=== PATIENT | female | born 2000 | race Hispanic/Latino ===

== ENCOUNTER 2021-08-28 17:49 | Emergency (ER) | payer OTHER ==
[~2021-08-28] VITALS: Ht 162.6 cm; Wt 103.0 kg
[2021-08-28] MEDS ORDERED: FAMOTIDINE 20 MG/2 ML VIAL IV STA (19:46)
[2021-08-28] MEDS ORDERED: ONDANSETRON HCL INJ 2MG/ML 2ML 2 MG/ML VIAL IV STA (19:46)
[2021-08-28] MEDS ORDERED: SODIUM CHLORIDE 0.9% 50ML 50 ML ONE (20:44)
[2021-08-28] MEDS ORDERED: IOPAMIDOL 370 MG/ML 200 ML INFUS..BTL INJ ONE (20:44)
[2021-08-28] MEDS: SODIUM CHLORIDE 0.9% 1000ML 1,000 ML IV SCH ×2 (21:06→21:19)
[2021-08-28] MEDS ORDERED: ONDANSETRON HCL INJ 2MG/ML 2ML 2 MG/ML VIAL ONE (21:08)
[2021-08-28] MEDS ORDERED: SODIUM CHLORIDE 0.9% 1000ML 1,000 ML ONE (21:09)
[2021-08-28] MEDS ORDERED: FAMOTIDINE 20 MG/2 ML VIAL IV ONE (21:10)
[2021-08-28] MEDS ORDERED: FAMOTIDINE40 MG PO (22:08)
[2021-08-28] MEDS ORDERED: PANTOPRAZOLE SO40 MG PO (22:10)
[2021-08-28] MEDS ORDERED: ONDANSETRON ODT4 MG PO (22:11)
[2021-08-28 22:15] VITALS: BP 106/67
== END 2021-08-28 22:22 | disposition home or self-care (01) ==
LOC: FSED 19:05
DX: K29.70 Gastritis, unspecified, without bleeding (principal); K21.9 Gastro-esophageal reflux disease without esophagitis; G80.8 Other cerebral palsy; Q04.4 Septo-optic dysplasia of brain; G40.909 Epilepsy, unspecified, not intractable, without status epilepticus; E66.01 Morbid (severe) obesity due to excess calories; Z68.39 Body mass index [BMI] 39.0-39.9, adult
CPT/HCPCS: 70450; 74177; 80048; 80076; 81003; 81025; 85025; 96374; 96375; 96376; 99284; C9113; J2405; J7030; Q9967

== ENCOUNTER 2024-06-22 12:49 | Emergency (ER) | payer OTHER ==
[~2024-06-22] VITALS: Ht 162.6 cm; Wt 113.4 kg
[~2024-06-22 12:49] MED LIST: CEFDINIR300 MG PO; CORICIDIN HBP1 EACH PO; FAMOTIDINE40 MG PO; IBUPROFEN800 MG PO; LACOSAMIDE100 MG; LAMOTRIGINE100 MG PO; LEVETIRACETAM1000 MG; NAPROSYN500 MG PO; OMEPRAZOLE20 M1 PO; ONDANSETRON ODT4 MG PO; PANTOPRAZOLE SO40 MG PO; PROTONIX20 MG PO; PROVENTIL HFA6.7 GM INH
[2024-06-22] MEDS ORDERED: OXCARBAZEPINE300 MG PO (13:27)
[2024-06-22] MEDS ORDERED: ONDANSETRON ODT4 MG PO (13:27)
[2024-06-22] MEDS: FAMOTIDINE 20 MG/2 ML VIAL IV STA (14:19)
[2024-06-22] MEDS: ONDANSETRON HCL INJ 2MG/ML 2ML 2 MG/ML VIAL IV STA (14:19)
[2024-06-22] MEDS: CEFTRIAXONE 1 GM VIAL IM ONE (15:06)
[2024-06-22 15:10] VITALS: PULSE 73; RESP 14; TEMP 98.7; O2SAT 97
== END 2024-06-22 15:28 | disposition home or self-care (01) ==
LOC: FSED 12:52
DX: R51.9 Headache, unspecified (principal); N39.0 Urinary tract infection, site not specified; G40.909 Epilepsy, unspecified, not intractable, without status epilepticus; Q04.6 Congenital cerebral cysts; G80.9 Cerebral palsy, unspecified
CPT/HCPCS: 70450; 80053; 81003; 81025; 85025; 96374; 96375; 99284; J0696; J2405

== ENCOUNTER 2025-06-19 12:59 | Emergency (ER) | payer MEDICAID, OTHER ==
[~2025-06-19] VITALS: Ht 162.6 cm; Wt 111.2 kg
[~2025-06-19 12:59] MED LIST changes: +OXCARBAZEPINE300 MG PO
[2025-06-19] MEDS: ONDANSETRON HCL INJ 2MG/ML 2ML 2 MG/ML VIAL IV STA (14:01)
[2025-06-19] MEDS: SODIUM CHLORIDE 0.9% 1000ML 1,000 ML IV ONE (14:01)
[2025-06-19] MEDS: FAMOTIDINE 20 MG/2 ML VIAL IV STA (14:02)
[2025-06-19 15:45] VITALS: PULSE 77; RESP 18; TEMP 98; O2SAT 98
== END 2025-06-19 15:45 | disposition home or self-care (01) ==
LOC: FSED 13:29
DX: R11.2 Nausea with vomiting, unspecified (principal); R10.30 Lower abdominal pain, unspecified; D64.9 Anemia, unspecified; Z77.22 Contact with and (suspected) exposure to environmental tobacco smoke (acute) (chronic)
CPT/HCPCS: 74176; 74177; 80053; 81003; 81025; 85025; 96374; 96375; 99284; J1308; J2405; J7030

== ENCOUNTER 2025-07-21 23:37 | Emergency (ER) | payer MEDICAID ==
[~2025-07-21] VITALS: Ht 162.6 cm; Wt 111.6 kg
[2025-07-22] MEDS ORDERED: LEVETIRACETAM 500 MG/5 ML VIAL IV ONE (00:30)
[2025-07-22] MEDS ORDERED: SODIUM CHLORIDE 0.9% 100 ML ONE (00:31)
[2025-07-22 00:38] VITALS: TEMP 98.4
[2025-07-22] MEDS ORDERED: ONDANSETRON HCL INJ 2MG/ML 2ML 2 MG/ML VIAL ONE (00:43)
[2025-07-22] MEDS: LEVETIRACETAM 1000MG/100ML IV 100 ML IV ONE (00:51)
[2025-07-22 00:53] LABS: BASOPHILS % 0.1 % (0.0-1.0); EOSINOPHILS % 0.0 % (0.0-6.0); LYMPHOCYTES % 21.4 % (18.0-39.1); MONOCYTES % 4.0 % (4.4-11.3); NEUTROPHILS % 74.3 % (38.7-80.0); RED CELL DISTRIBUTION WIDTH 16.2 % (11.7-14.4)
[2025-07-22 00:59] LABS: INR 0.95
[2025-07-22 01:09] LABS: EST GLOMERULAR FILTRATION RATE 108.0 ML/MIN (>=60)
[2025-07-22] MEDS: ONDANSETRON HCL INJ 2MG/ML 2ML 2 MG/ML VIAL IV STA (01:33)
[2025-07-22 03:16] VITALS: PULSE 71; RESP 18
[2025-07-22 03:18] VITALS: BP 115/78; PULSE 74; RESP 18; O2SAT 99
== END 2025-07-22 03:05 | disposition home or self-care (01) ==
LOC: EDSEX 23:37 → ER 07-22 00:04
DX: G40.909 Epilepsy, unspecified, not intractable, without status epilepticus (principal); R51.9 Headache, unspecified; G81.91 Hemiplegia, unspecified affecting right dominant side; Q04.4 Septo-optic dysplasia of brain
CPT/HCPCS: 36415; 80053; 82550; 84484; 84702; 85025; 85610; 85730; 99284; J1953; J2405; J7050